=== PATIENT | female | born 1950 | race Caucasian/White ===

== ENCOUNTER 2018-11-25 14:22 | Emergency (ER) | payer MEDICARE ==
[~2018-11-25] VITALS: Ht 170.2 cm; Wt 72.6 kg
[2018-11-25 15:42] LABS: ABSOLUTE EOSINOPHILS 0.1 thou/uL (0.0-0.7); ABSOLUTE LYMPHOCYTES 1.8 thou/uL (0.8-5.3); ABSOLUTE MONOCYTES 0.7 thou/uL (0.0-1.2); ABSOLUTE NEUTROPHILS 4.7 thou/uL (1.6-8.1); BASOPHILS 0.7 %; EOSINOPHILS 1.9 %; HEMOGLOBIN 12.4 gm/dL (12.0-15.0); LYMPHOCYTES 24.6 %; MCH 31.1 pg (26.0-34.0); MCHC 33.5 g/dL (28.0-37.0); MCV 92.9 fL (80.0-100.0); MONOCYTES 9.4 %; NUCLEATED RBCS 0 /100WBC; PLATELET COUNT* 301 thou/uL (150-400); POLYS 63.4 %; RBC 3.98 mil/uL (4.20-5.00); RDW-CV 12.9 % (10.5-14.5); WBC 7.4 thou/uL (4.0-11.0)
[2018-11-25 15:56] LABS: ANION GAP 10 mmol/L (7-16); BUN 15 mg/dL (7-18); CALCIUM 8.5 mg/dL (8.5-10.1); CHLORIDE 99 mmol/L (98-107); CO2 26 mmol/L (21-32); CREATININE 0.9 mg/dL (0.6-1.3); GLUCOSE 271 mg/dL (70-99); POTASSIUM 3.6 mmol/L (3.5-5.1); SODIUM 135 mmol/L (136-145)
[2018-11-25] MEDS ORDERED: MEDROLDOSEPACK PO (15:56)
[2018-11-25] MEDS ORDERED: ZPAK PO (15:56)
[2018-11-25] MEDS ORDERED: PROAIR HFA8.5 GM INH (15:56)
[2018-11-25] MEDS ORDERED: PROMETHAZINE V120 ML PO (15:57)
[2018-11-25 16:01] LABS: ALBUMIN 3.4 g/dL (3.4-5.0); ALKALINE PHOSPHATASE 226 U/L (46-116); SGOT 27 U/L (15-37); SGPT 50 U/L (30-65); TOTAL BILIRUBIN 0.3 mg/dL (<0.1-1.0); TOTAL PROTEIN 7.6 g/dL (6.4-8.2); TROPONIN-I LEVEL <0.06 ng/mL (<0.06)
[2018-11-25 16:28] VITALS: BP 144/72
--- NOTE | 2018-11-26 18:43 | EKG ---
[place] [address] ELECTROCARDIOGRAM REPORT Name: ZACH HOOPER Room: [facility]#: [id number] Admission: 11/25/18 Attend Phys: Discharge: 11/25/18 Date of : 54 Report #: [id number] THIS REPORT FOR: //name// 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: Phyllis COELLO : 1950 Requested By: Josie Mckeon Order Number: [id number] MD: Pio Momin Measurements Intervals [place] Rate: 98 P: 71 VA: 200 QRS: -9 QRSD: 92 T: 62 QT: 336 QTc: 430 Interpretive Statements Sinus rhythm RSR' in V1 or V2, right VCD or RVH No previous ECG available for comparison Electronically Signed On 11-26-2018 18:43:35 [employer]TER [employer] by Pio Momin [email or web address] <ELECTRONICALLY SIGNED> By: Pio Momin MD, [facility] 11/26/18 [id number] Pio Momin MD, [facility] /EPI
== END 2018-11-25 16:28 | disposition home or self-care (01) ==
LOC: M.ERS 14:22
PROVIDERS: Physician Assistant
DX: J06.9 Acute upper respiratory infection, unspecified (principal); R73.9 Hyperglycemia, unspecified

== ENCOUNTER → 2019-01-05 | Outpatient (CLI) | payer MEDICARE ==
[~2019-01-05] MED LIST: MEDROLDOSEPACK PO; PROAIR HFA8.5 GM INH; PROMETHAZINE V120 ML PO; ZPAK PO
== END ==
LOC: M.RAD 12-08 14:41
DX: Z12.31 Encounter for screening mammogram for malignant neoplasm of breast (principal); M85.89 Other specified disorders of bone density and structure, multiple sites; Z78.0 Asymptomatic menopausal state

== ENCOUNTER → 2021-09-11 | Outpatient (CLI) | payer MEDICARE | LOC: M.RAD 09-06 10:02 | PROVIDERS: ATTEND Registered Nurse Diabetes Educator | DX: Z12.31 Encounter for screening mammogram for malignant neoplasm of breast (principal); Z78.0 Asymptomatic menopausal state; N64.89 Other specified disorders of breast; M85.88 Other specified disorders of bone density and structure, other site ==